=== PATIENT | male | born 1955 | race Caucasian/White ===

== ENCOUNTER 2024-01-21 05:35 | Day surgery (SDC) | payer MEDICARE ==
--- NOTE | 2024-01-21 06:25 | P.GSHP ---
History of Present Illness H&P Date: 01/21/24 CHIEF COMPLAINT: Inguinal hernia, right. HISTORY OF PRESENT ILLNESS: The patient is a 68-year-old male who presents with a history of swelling and pain along the right groin. He has noted increased swelling including pain of the area. Now he presents for repair of his inguinal hernia. PAST MEDICAL HISTORY: Please see list. PAST SURGICAL HISTORY: Please see list. MEDICATIONS: Please see list. ALLERGIES: Please see list. SOCIAL HISTORY: No illicit drug use FAMILY HISTORY: No reports of Crohn disease or ulcerative colitis. REVIEW OF ORGAN SYSTEMS: CONSTITUTIONAL: No reports of fevers or chills. No reports of weight loss despite prior attempts. GI: Denies any blood in stools or constipation. PHYSICAL EXAM: VITAL SIGNS: Stable GENERAL: Well-developed pleasant in no acute distress. HEENT: No scleral icterus. Extraocular movements grossly intact. Moist buccal mucosa. NECK: Supple without lymphadenopathy. CHEST: Unlabored respirations. Equal bilateral excursions. CARDIOVASCULAR: Regular rate and rhythm. Distal 2+ pulses. ABDOMEN: Soft, nondistended. No peritoneal signs. Moderate tenderness right lower quadrant MUSCULOSKELETAL: No clubbing, cyanosis, or edema. ASSESSMENT: 1. Inguinal hernia, right initial and symptomatic. PLAN: 1. Recommend proceeding robotic inguinal repair with mesh with possible bilateral approach. 2. Benefits and risks of surgical intervention was discussed including possibility of open technique. 3. DVT prophylaxis. 4. Antibiotic prophylaxis. 5. Non narcotic pain management including abdominal wall block described 6. Blood sugar glucose described. 7. Weight loss management described. 8. CBC and CMP on day of procedure 9. EKG reviewed and unremarkable 10. Flomax for prevention of urinary retention Past Medical History Past Medical History: Hyperlipidemia Additional Past Medical History / Comment(s): rt inguinal hernia History of Any Multi-Drug Resistant Organisms: None Reported Past Surgical History: Appendectomy, Tonsillectomy Additional Past Surgical History / Comment(s): colonoscopy Past Anesthesia/Blood Transfusion Reactions: No Reported Reaction Smoking Status: Former smoker - Past Family History Mother Family Medical History: Hypertension Medications and Allergies Home Medications Medication Instructions Recorded Confirmed Type Ezetimibe [Zetia] 10 mg PO PC-LUNCH 01/19/24 01/19/24 History Unk Tylenol 1 tab PO DIRECTED PRN 01/19/24 01/19/24 History Aspirin 325 mg PO DAILY 01/21/24 01/21/24 History Allergies Allergy/AdvReac Type Severity Reaction Status Date / Time No Known Allergies Allergy Verified 01/19/24 13:23
[2024-01-21] MEDS: IV FLUID CONTINUATION 1,000 ML IV ONE (06:35)
[2024-01-21] MEDS: TAMSULOSIN 0.4 MG CAP.ER.24H PO STA (06:52)
[2024-01-21] MEDS: LACTATED RINGERS 1,000 ML IV SCH (06:52)
[2024-01-21] MEDS: ONDANSETRON 4 MG/2 ML VIAL IVP PRN (06:53)
[2024-01-21] MEDS: MELOXICAM 7.5 MG TAB PO PRN (06:53)
[2024-01-21] MEDS: ACETAMINOPHEN TAB 500 MG TAB PO PRN (06:53)
[2024-01-21 06:58] LABS: Basophils # (A) 0.1 k/uL (0-0.2); Basophils % (A) 1 %; Eosinophils # (A) 0.2 k/uL (0-0.7); Eosinophils % (A) 2 %; HGB 14.9 gm/dL (13.0-17.5); Lymphocytes % (A) 22 %; MCH 30.6 pg (25.0-35.0); MCHC 33.8 g/dL (31.0-37.0); MCV 90.7 fL (80.0-100.0); Mean Platelet Volume 7.7; Monocytes # (A) 0.5 k/uL (0-1.0); Monocytes % (A) 5 %; Neutrophils # (A) 6.2 k/uL (1.3-7.7); Neutrophils % (A) 69 %; Platelet Count 207 k/uL (150-450); RBC 4.85 m/uL (4.30-5.90)
[2024-01-21] MEDS ORDERED: HYDROmorphone 0.5 MG/0.5 ML SYRINGE IVP PRN (07:00)
[2024-01-21 07:01] LABS: ALT 19 U/L (4-49); AST 23 U/L (17-59); African American GFR (CKD) 80 (>60 ml/min/1.73 sqM); Albumin 4.5 g/dL (3.5-5.0); Alkaline Phosphatase 67 U/L (38-126); Anion Gap 10 mmol/L; Blood Urea Nitrogen 26 mg/dL (9-20); Carbon Dioxide 24 mmol/L (22-30); Chloride 109 mmol/L (98-107); Glucose 93 mg/dL (74-99); Non-African American GFR(CKD) 69 (>60 ml/min/1.73 sqM); Potassium 4.3 mmol/L (3.5-5.1); Sodium 143 mmol/L (137-145); Total Bilirubin 0.6 mg/dL (0.2-1.3); Total Protein 7.2 g/dL (6.3-8.2)
[2024-01-21] MEDS: MIDAZOLAM 2 MG/2 ML VIAL IV PRN (07:12)
--- NOTE | 2024-01-21 07:25 | P.ANPRN ---
Procedure Note - Anesthesia - Nerve Block Performed Bilateral Erector Spinae Single Time Out Performed: Yes Date of Procedure: 01/21/24 Procedure Start Time: :12 Procedure Stop Time: :19 Location of Patient: PreOp Indication: Acute Post-Operative Pain, Requested by Surgeon Sedation Type: Sedate with meaningful contact maintained Preparation: Sterile Prep Position: Prone Needle Types: Pajunk Needle Gauge: 21 Ultrasound used to visualize needle placement: Yes Ultrasound used to observe medication spread: Yes Injectate: 0.5% Ropivacaine (see comment for volume) (20 ml + 10 ml NS + 4 mg Dexamethasone per side) Blood Aspirated: No Pain Paresthesia on Injection Noted: No Resistance on Injection: Normal Image Stored and Saved: Yes Events: Uneventful and Well Tolerated
[2024-01-21] MEDS: HEPARIN SODIUM,PORCINE 5,000 UNIT/ML 1 ML VIAL SQ PRN (07:27)
[2024-01-21] MEDS ORDERED: GLYCOPYRROLATE 0.2 MG/ML 2 ML VIAL ONE (07:31)
[2024-01-21] MEDS ORDERED: KETOROLAC 15 MG/ML 1 ML VIAL ONE (07:31)
[2024-01-21] MEDS ORDERED: PHENYLEPHRINE-0.9% NACL SYG 1,000 MCG/10 ML SYRINGE ONE (07:31)
[2024-01-21] MEDS ORDERED: LIDOCAINE 1% INJ 10MG/ML (20 ML MDV) ONE (07:31)
[2024-01-21] MEDS ORDERED: ROCURONIUM 10 MG/ML (5 ML VIAL) IV ONE (07:31)
[2024-01-21] MEDS ORDERED: SODIUM CHLORIDE 0.9% (PF) 10 ML VIAL ONE (07:31)
[2024-01-21] MEDS ORDERED: DEXAMETHASONE SOD PHOSPHATE 4 MG/ML 1 ML VIAL ONE (07:31)
[2024-01-21] MEDS ORDERED: PROPOFOL 10 MG/ML 20 ML VIAL IV ONE (07:31)
[2024-01-21] MEDS ORDERED: ROPIVACAINE 5 MG/ML 30 ML VIAL ONE (07:31)
[2024-01-21] MEDS ORDERED: NEOSTIGMINE 1 MG/ML 10 ML VIAL ONE (07:31)
[2024-01-21] MEDS ORDERED: fentaNYL (PF) 50 MCG/ML 2 ML AMP ONE (07:31)
[2024-01-21 07:40] VITALS: RESP 16
[2024-01-21] MEDS: LIDOCAINE 1%-EPI 1:100,000 20 ML VIAL SQ ONE (08:07)
[2024-01-21 09:37] VITALS: TEMP 96.7
--- NOTE | 2024-01-21 10:08 | P.OP ---
Date of Procedure: 01/21/24 Description of Procedure: SURGEON: MARGIE BROWN MD PREOPERATIVE DIAGNOSES: 1. Initial right inguinal hernia 2. Hyperlipidemia POSTOPERATIVE DIAGNOSES: 1. Initial right inguinal hernia 2. Hyperlipidemia 3. Right lower abdominal adhesions OPERATION: 1. Robotic-assisted da Ira Xi laparoscopic lysis of adhesions 2. Robotic-assisted da Ira Xi laparoscopic repair of initial right indirect inguinal hernia with mesh, 10 x [address] ANESTHESIA: General with local anesthetic ESTIMATED BLOOD LOSS: 10 mL. SPECIMENS: 1. Right inguinal hernia sac COMPLICATIONS: None. FINDINGS: 1. Right lower quadrant/pelvic adhesions from prior open surgery, lysed using scissors with cautery 2. Nyhus type IIIb, right indirect inguinal hernia extending to scrotum, 4 cm fascial defect including enlargement of external ring 3. No hernia along the left groin INDICATIONS: The patient is a 68-year-old male who presents with swelling along the right groin, initial right inguinal hernia. He had prior surgery of the right lower abdomen. Laparoscopic versus open and robotic approaches were discussed including bilateral approach. Benefits and risks including bleeding, infection, chronic groin pain, sterility were reviewed. Placement of mesh was also described. Informed consent was obtained. DESCRIPTION: In the preoperative area, an abdominal block was placed per anesthesia. The patient was brought to the operating room and initially laid in supine position. The abdomen had been prepped and draped in standard sterile fashion. Ioban draping was also placed. Prior to incision, a timeout protocol was confirmed with surgical team regarding patient's name including procedures to be performed. Initial positioning for the robotic assisted ports were selected 20 cm superior to the target anatomy. A 0 degree 5 mm laparoscopic trocar entry was performed at the left upper quadrant. The abdomen was insufflated to 15 mmHg which he tolerated well. Diagnostic laparoscopy demonstrated no injury to bowel, viscera or mesentery. Adhesions along the right lower abdomen was identified omentum to the abdominal from prior open surgery. Large right inguinal defect with out incarceration was found. Next, along the epigastrium, 8 mm robot trocar was placed. An 8-mm robotic trocar was placed under direct visualization at the right upper quadrant. An 8 mm port was placed at the left upper quadrant. All trocars were positioned between 10-cm apart from each other. An additional 12 mm trocar along the right lateral abdominal wall was placed for placement of instruments and suture. The [employer] XI robot was primed, draped, prepared for docking along upper abdomen of the patient. The patient was positioned 14 steep Trendelenburg position. I then went to the [employer] Xi console. The expanded duty dental assistant was at bedside for exchange of the robot arms and equipment. Attention was brought to the left groin. No inguinal hernia was identified. Adhesions along the right lower abdomen was taken down using scissors with cautery for the omentum to the abdominal wall. Attention was brought to the right groin. A large right inguinal defect was confirmed. No bowel was found incarcerated.Next, the right groin defect was measured 4 x 3-cm hernia with the sac extending to the scrotum. A large indirect hernia was confirmed, Nyhus type 3B. The right inguinal hernia sac was evaginated whereby the peritoneum was scored using Endo scissors with cautery. As the hernia sac extended into the groin, complete resection of the sac was done. The peritoneal sac of the hernia was stripped. The sac was resected and then passed off for further pathological analysis. The size of the hernia defect was 4 cm x 3 cm with intraoperative films obtained. Using a 2-0 VLOC nonabsorbable, the fascial defect conjoined tendon to the inguinal shelf was performed to reapproximate the inguinal ring followed by the the peritoneal defect of the right inguinal hernia site was closed in a pursestring fashion. The defect was found to be completely closed with complete reduction of the right indirect inguinal hernia was confirmed. As an onlay, an 10 x [address] mesh by [employer]ily[employer] was cut in half and entered into the abdominal cavity via the 12 mm trocar. The mesh was tacked to the pelvis using absorbable 2-0 VLOC 12 inch and 9-inch length sutures. A final endoscopic imaging was obtained. The robot was undocked from the patient's bedside. I then rescrubbed into the case. Insufflation was released from the abdominal cavity and all instruments were removed from the abdominal cavity. Pressure was applied along the right groin. The rest of incisions were reapproximated using 4-0 Monocryl in a running subcuticular fashion. Local anesthetic was placed along the incision including for a bilateral groin block. Incisions were cleansed using dilute hydrogen peroxide. Liquid glue was applied to the skin. At the end of the procedure, the needle, sponge and instrument counts had been verified correct by the surgical services director. The patient had tolerated the procedure well and was taken to the postanesthesia care unit in stable condition. Intraoperative images were reviewed with the patient's family who were pleased with the level of care. Plan - Discharge Summary Discharge Rx Participant: No New Discharge Prescriptions: New Ibuprofen [Motrin] 600 mg PO Q8HR PRN #30 tab PRN Reason: Pain Simethicone [Gas-X] 125 mg PO AC-TID PRN #20 capsule PRN Reason: Pain Acetaminophen Tab [Tylenol Tab] 1,000 mg PO Q6HR PRN #30 tablet PRN Reason: Pain Continue Ezetimibe [Zetia] 10 mg PO PC-LUNCH Unk Tylenol 1 tab PO DIRECTED PRN PRN Reason: Pain Aspirin 325 mg PO DAILY Discharge Medication List Ezetimibe [Zetia] 10 mg PO PC-LUNCH 01/19/24 [History] Unk Tylenol 1 tab PO DIRECTED PRN 01/19/24 [History] Acetaminophen Tab [Tylenol Tab] 1,000 mg PO Q6HR PRN #30 tablet 01/21/24 [Rx] Aspirin 325 mg PO DAILY 01/21/24 [History] Ibuprofen [Motrin] 600 mg PO Q8HR PRN #30 tab 01/21/24 [Rx] Simethicone [Gas-X] 125 mg PO AC-TID PRN #20 capsule 01/21/24 [Rx] Follow up Appointment(s)/Referral(s): Margie Brown MD [STAFF PHYSICIAN] - 01/25/24 6:30 am ( calls you for telehealth) Patient Instructions/Handouts: Laparoscopic Herniorrhaphy (IP) Discharge Disposition: HOME SELF-CARE
[2024-01-21 11:31] VITALS: BP 144/74; PULSE 68
== END 2024-01-21 12:10 | disposition home or self-care (01) ==
LOC: OR 05:35
PROVIDERS: ATTEND Surgery Plastic and Reconstructive Surgery
DX: K40.90 Unilateral inguinal hernia, without obstruction or gangrene, not specified as recurrent (principal); E78.5 Hyperlipidemia, unspecified; K66.0 Peritoneal adhesions (postprocedural) (postinfection); Z90.49 Acquired absence of other specified parts of digestive tract; Z90.89 Acquired absence of other organs; Z87.891 Personal history of nicotine dependence; Z82.49 Family history of ischemic heart disease and other diseases of the circulatory system; Z79.899 Other long term (current) drug therapy; Z79.82 Long term (current) use of aspirin
CPT/HCPCS: 64999; 80053; 85025; 49650; C1781; J2250; J1644; J1100; J2710; J0690; J2405; J2003; J3010; J2795; J1885; J2704; J2371; J1596; 88302